=== PATIENT | female | born 1970 | race Caucasian/White ===

== ENCOUNTER → 2016-04-03 | Day surgery (SDC) | payer OTHER ==
[~2016-04-03] VITALS: Ht 165.1 cm; Wt 96.2 kg
[~2016-04-03] MED LIST: ADDERALL XR 3030 MG PO; CLONAZEPAM2 M2 PO; EFFEXOR XR150 M1 PO
--- NOTE | 2016-04-03 11:46 | Operative Report ---
Operative/Inv Procedure Report Surgery Date: 04/03/16 Name of Procedure: D&C polypectomy and endometrial ablation Pre-Operative Diagnosis: Menorrhagia Post-Operative Diagnosis: Menorrhagia and endometrial polyp Estimated Blood Loss: scant Surgeon/Date Night Caregiver: MITCHELL BENNETT,BRADLEY Chang Anesthesia: local monitored anesthesi Operative/Procedure Note Note: Patient was taken to the operating room placed in dorsal supine position with the legs in stirrups the patient was prepped and draped in usual sterile fashion a timeout was performed while the patient was awake examination under anesthesia showed uterus to be retroflexed single-tooth tenaculum was placed on the anterior lip of the cervix and the endocervical canal was dilated. Hysteroscope was passed through the endocervical canal small polyp was noted in the fundal region otherwise normal anatomy this polyp was grasped with a polyp forceps and removed some pathology examination the uterus was sounded to 8 cm and the cervix was measured at 3 cm therefore the [employer] sure endometrial ablation device was set to a depth of 5cm. The device was placed fundus and well seated diameter of the endometrial cavity was measured to be 3.68 CO2 test for integrity was performed and noted to be normal treatment cycle of 2 minutes was undertaken the device was removed hysteroscopic examination showed good daniel symmetric tenaculum was removed patient to recovery room in good condition and was 1 specimen marked endometrial polyp sent to pathology for examination of dictation 7 note drains left at the end of the procedure.
== END ==
LOC: STS 02:01
DX: N92.0 Excessive and frequent menstruation with regular cycle (principal); N84.0 Polyp of corpus uteri; F17.200 Nicotine dependence, unspecified, uncomplicated; M79.7 Fibromyalgia
CPT/HCPCS: 81025; 88305; J0131; J2250; J2405